=== PATIENT | female | born 1955 | race Caucasian/White ===

== ENCOUNTER 2021-10-23 22:13 | Emergency (ER) | payer OTHER ==
[2021-10-23 22:41] VITALS: BP 143/75; TEMP 98.8; BMI 33.3
[2021-10-24 01:39] VITALS: PULSE 100
== END 2021-10-24 01:40 | disposition left against medical advice (07) ==
LOC: JER 22:13
DX: R06.02 Shortness of breath (principal); R00.0 Tachycardia, unspecified
CPT/HCPCS: 71046-TC-FY; 93005; 93010; 99284-25; C9803-CS; U0003; U0005